=== PATIENT | female | born 1950 | race Caucasian/White ===

== ENCOUNTER 2016-05-31 14:19 | Inpatient (IN) | payer MEDICARE ==
[~2016-05-31] VITALS: Ht 154.9 cm; Wt 91.8 kg
[2016-06-03] MEDS ORDERED: LISI-515 PO (10:26)
[2016-06-03] MEDS ORDERED: PRAV40TA2 PO (10:26)
[2016-06-03] MEDS ORDERED: METO50TA PO (10:26)
[2016-06-03] MEDS ORDERED: ASPI325T PO (10:26)
[2016-06-03] MEDS ORDERED: IBUP200C PO (10:26)
[2016-06-19] MEDS: POVIDONE IODINE 7.5% SCRUB 118 ML BOTTLE TOP SCH ×2 (05:45→22:08)
[2016-06-19] MEDS ORDERED: DEXAMETHASONE SOD PHOS 4 MG/ML VIAL IV SCH (05:45)
[2016-06-19] MEDS ORDERED: VANCOMYCIN 1000 MG/NS 250 ML (for <70 kg) IV SCH ×2 (05:45)
[2016-06-19] MEDS ORDERED: METF1000 PO (05:51)
[2016-06-19 05:52] VITALS: BP 158/84; PULSE 75; RESP 16; TEMP 98.7; O2SAT 99
[2016-06-19] MEDS ORDERED: SODIUM CHLOR 0.9% 250 ML INJ 250 ML ONE (05:53)
[2016-06-19] MEDS ORDERED: DEXAMETHASONE SOD PHOS 20 MG/5 ML VIAL ONE (05:59)
[2016-06-19] MEDS ORDERED: SODIUM CHLORID 0.9% 500 ML IV SCH (06:00)
[2016-06-19] MEDS ORDERED: INSULIN HUMAN REGULAR 1,000 UNITS/10 ML VIAL SQ PRN (06:00)
[2016-06-19] MEDS ORDERED: LACTATED RINGER'S 1000 ML IV SCH (06:00)
[2016-06-19] MEDS ORDERED: METOPROLOL TARTRATE 25 MG TAB PO PRN (06:00)
[2016-06-19] MEDS ORDERED: GENTAMICIN SULFATE 80 MG/2 ML VIAL ONE (06:17)
[2016-06-19] MEDS ORDERED: MIDAZOLAM HCL 2 MG/2 ML VIAL ONE (06:44)
[2016-06-19] MEDS ORDERED: DEXAMETHASONE SOD PHOS 4 MG/ML VIAL ONE (06:44)
[2016-06-19] MEDS ORDERED: FAMOTIDINE 20 MG/2 ML VIAL ONE (06:44)
--- NOTE | 2016-06-19 06:51 | HHI.DCPOC ---
Discharge Care Plan Diagnosis: (1) Status post total hip replacement, right (2) Osteoarthritis of right hip Your Health Problems Are: Difficulty with ADL Goals to Promote Your Health * To prevent worsening of your condition and complications * To maintain your health at the optimal level Directions to Meet Your Goals Take your medications as prescribed Follow your dietary instruction Follow activity as directed Keep your appointments as scheduled Take your immunizations and boosters as scheduled If your symptoms worsen call your PCP, if no PCP go to Urgent Care Center or Emergency Room Smoking is Dangerous to Your Health. Avoid second hand smoke Call the 24-hour hour crisis hotline for domestic abuse at Steve Goff Jun 19, 2016 06:51
--- NOTE | 2016-06-19 06:52 | HHI.FF ---
Face to Face Verification Diagnosis: (1) Status post total hip replacement, right (2) Osteoarthritis of right hip Physical Therapy Gait training, Transfer training, bed to chair Hip: Total hip Right LE Weight Bearing: WB as tolerated Right LE Range of Motion: Active ROM Nursing Nursing: Swapnil teaching, Dressing changes Dressing Changes: Daily dressing change I have seen patient Thao Waldron on 06/19/16. My clinical findings support the need for the requested home health care services because: Limited ability to care for self High risk of falls I certify that my clinical findings support that this patient is homebound because: Post-op weakness Unsteady gait/balance Steve Goff Jun 19, 2016 06:52
[2016-06-19] MEDS ORDERED: WALKER WHEELS/F1 MIS (06:53)
[2016-06-19] MEDS ORDERED: COMMODE 3-IN-11 MIS (06:53)
[2016-06-19] MEDS: TRANEXAMIC ACID IV SCH ×2 (06:59→07:00)
[2016-06-19] MEDS: SODIUM CHLORIDE 0.9% IV SCH ×2 (06:59→07:00)
[2016-06-19] MEDS: EXPAREL PERI-ARTICULAR INJECTION (TOTAL VOL. 60 ML) P-ARTICULR SCH ×4 (07:00→07:37)
[2016-06-19] MEDS ORDERED: CLINDAMYCIN 900 MG/NS 100 ML IV SCH ×2 (07:30)
--- NOTE | 2016-06-19 08:44 | PD.OP ---
cc: Rod Wang MD Operative Report Date of Surgery: Jun 19, 2016 Preoperative Diagnosis: Right hip severe osteoarthritis. Postoperative Diagnosis: Same Procedure: Right total hip arthroplasty Anesthesia: Gen. Surgeon: Rod Wang Body Mechanic Apprentice(s): GAVI Claire The surgical procedure was assisted by my Advanced Registered Nurse Practitioner. My GRADES 9 THROUGH 12 TEACHER presence was necessary throughout this case for the manipulation and positioning of the surgical extremity. My GRADES 9 THROUGH 12 TEACHER was assisting me throughout the duration of this procedure. The skill set of an Advance Registered Nurse Practitioner was medically necessary to complete this procedure. During the surgical case, the pm technician was working at the back table and the Advance Registered Nurse Practitioner was directly assisting me. Operation and Findings: IMPLANT DESCRIPTION: 1. [place] Gription Cup, acetabular size 48. 2. [place] AltrX polyethylene, neutral. 4. [place] femoral stem size 9, no collar, standard offset. 5. Femoral head/neck metal, 32, +5. ESTIMATED BLOOD LOSS: 250 cc. JUSTIFICATION FOR PROCEDURE: The patient has end-stage osteoarthritis to the hip. There is an attached conservative measures pathway form in the chart that describes the nonoperative measures that were undertaken prior to consideration of surgical management. The patient understood the risks and benefits of surgical management. See my office notes for further details. PROCEDURE: The patient was brought back to the operative theatre. Adequate anesthesia was obtained. The patient received intravenous vancomycin and clindamycin. The patient was carefully placed on the operative table. The lower extremity was prepped and draped in the usual sterile fashion. Fluoroscopic images were obtained. We made a standard anterior incision over the hip. We dissected through the TFL fascia, exposing the anterior capsule. Arthrotomy was performed in a T-shaped fashion. The capsule was tagged with a #2 FiberWire. End-stage arthritis was identified. Osteotomy was performed through the femoral neck exposing the acetabulum. Remnants of the labrum were resected and osteophytes were removed. We sequentially reamed the acetabulum. We trialed the hip and placed the final cup into position. This was done under fluoroscopic guidance to obtain the appropriate inclination and anteversion. A manhole cover was placed into the acetabular component. We then placed the final polyethylene into position and confirmed that it was well seated. Capsular attachments on the calcar and the inner aspect of the greater trochanter were resected. On the proximal aspect of the femur we used a rongeur , box osteotome, canal finder, sequential broaches and lateralizing rasp. We calcar planed the proximal femur. Then thoroughly irrigated the wound. We trialed the hip with the appropriate size stem. We placed the final stem in to position and trialed again. The hip was stable while it was externally rotated 70 degrees when the leg was lowered to the floor. The final head was applied, and final fluoroscopic images were obtained. The wound was thoroughly irrigated again. Interarticular injection of liposomal bupivacaine was given. The capsule was closed with #2 FiberWire and #1 Vicryl. The deep fascia was closed with a #2 Stratafix, followed by 2-0 Vicryl in the skin and juan. Postop plan is to weight-bear as tolerated. DVT prophylaxis will be performed with Anju, COLUMBA darden, early mobilization, and Lovenox followed by aspirin. Rod Wang MD Jun 19, 2016 08:44
[2016-06-19] MEDS ORDERED: Post-op Orders (for Pharmacy) MISC XX ONE (08:45)
[2016-06-19] MEDS ORDERED: ACETAMINOPHEN/HYDROcodone 325 MG/5 MG TAB PO PRN (08:45)
[2016-06-19] MEDS ORDERED: NALOXONE HCL 0.4 MG/ML AMP IV PRN (08:45)
[2016-06-19] MEDS ORDERED: ONDANSETRON HCL 4 MG/2 ML VIAL IVP PRN (08:45)
[2016-06-19] MEDS ORDERED: ZOLPIDEM TARTRATE 5 MG TAB PO PRN (08:45)
[2016-06-19] MEDS ORDERED: MAGNESIUM HYDROXIDE SUSP 30 ML CUP PO PRN (08:45)
[2016-06-19] MEDS ORDERED: SODIUM CHLORIDE 0.9% FLUSH 5 ML FLUSH IVF PRN (08:45)
[2016-06-19] MEDS ORDERED: BISACODYL 10 MG SUPP PR PRN (08:45)
[2016-06-19] MEDS ORDERED: MORPHINE SULFATE 4 MG/ML INJ IV PUSH PRN (08:45)
[2016-06-19] MEDS ORDERED: ALUMINUM/MAGNESIUM/SIMETH 30 ML CUP PO PRN (08:45)
[2016-06-19] MEDS ORDERED: diphenhydrAMINE HCL 50 MG/ML VIAL IV PRN (08:45)
[2016-06-19] MEDS ORDERED: ASPI325T PO (08:46)
[2016-06-19] MEDS ORDERED: NORC5TAB PO (08:46)
[2016-06-19] MEDS ORDERED: ENOX40P SQ (08:46)
[2016-06-19] MEDS ORDERED: DO NOT ADM ANY ANTICOAGULANT DRUGS XX PRN (09:15)
[2016-06-19] MEDS ORDERED: fentaNYL CITRATE 250 MCG/5 ML AMP ONE (09:21)
[2016-06-19] MEDS ORDERED: *morphine SULFATE 8 MG/ML PERIprocedure ONLY ONE ×2 (09:25→09:43)
--- NOTE | 2016-06-19 09:36 | RADRPT ---
EXAM DATE/TIME: 06/19/2016 07:21 [facility] COMPARISON: No previous studies available for comparison. INDICATIONS : Post-op total right hip arthroplasty. MEDICAL HISTORY : None. SURGICAL HISTORY : None. ENCOUNTER: Initial ACUITY: 1 day PAIN SCORE: Non-responsive. LOCATION: Right hip. FINDINGS: Right total hip arthroplasty is noted. The hardware appears intact. Alignment is anatomic. Adjacent p kody is unremarkable. CONCLUSION: Satisfactory appearance post right CALLIE John Hollingsworth MD on June 19, 2016 at 9:34 Board Certified Radiologist. This report was verified electronically.
[2016-06-19] MEDS ORDERED: TRANEXAMIC ACID IV SCH (10:00)
[2016-06-19] MEDS: LISINOPRIL 20 MG TAB PO SCH ×2 (10:00→20:04)
[2016-06-19] MEDS: PRAVASTATIN SOD 40 MG TAB PO SCH (10:00)
[2016-06-19] MEDS: SODIUM CHLOR 0.9% 1000 ML INJ 1,000 ML IV SCH ×2 (10:00→20:00)
[2016-06-19] MEDS: metFORMIN HCL 500 MG TAB PO SCH ×2 (10:00→18:00)
[2016-06-19] MEDS: SODIUM CHLORIDE 0.9% FLUSH 5 ML FLUSH IVF SCH ×2 (10:00→20:03)
[2016-06-19] MEDS: METOPROLOL TARTRATE 50 MG TAB PO SCH ×2 (10:00→20:04)
[2016-06-19] MEDS ORDERED: SODIUM CHLORIDE 0.9% IV SCH (10:00)
--- NOTE | 2016-06-19 10:59 | RADRPT ---
EXAM DATE/TIME: 06/19/2016 09:30 [facility] COMPARISON: No previous studies available for comparison. INDICATIONS : Post op right total hip. MEDICAL HISTORY : None. SURGICAL HISTORY : None. ENCOUNTER: Subsequent ACUITY: 1 day PAIN SCORE: Non-responsive. LOCATION: Right hip. FINDINGS: The patient is status post right hip replacement with prosthesis in good position. CONCLUSION: Status post right hip replacement with prosthesis in good position. Khoi Faust MD on June 19, 2016 at 10:50 Board Certified Radiologist. This report was verified electronically.
[2016-06-19 12:00] VITALS: BP 107/67; PULSE 96; RESP 19; TEMP 96; O2SAT 98
[2016-06-19] MEDS ORDERED: MORPHINE SULFATE 4 MG/ML INJ IV ONE (12:00)
[2016-06-19] MEDS ORDERED: LACTATED RINGER'S 1000 ML INJ 1,000 ML IV ONE (12:00)
[2016-06-19] MEDS ORDERED: ePHEDrine/NS 25 MG/5 ML SYR IV ONE (12:00)
[2016-06-19] MEDS ORDERED: PROPOFOL 200 MG/20 ML AMP IV ONE (12:00)
[2016-06-19] MEDS ORDERED: ONDANSETRON HCL 4 MG/2 ML VIAL IV PUSH ONE (12:00)
[2016-06-19] MEDS: MAGNESIUM HYDROXIDE SUSP 30 ML CUP PO SCH ×2 (15:00→20:04)
[2016-06-19] MEDS: CLINDAMYCIN INJ 900 MG in SODIUM CHLORIDE 0.9% INJ 100 ML IV SCH ×2 (15:50→22:07)
[2016-06-19 16:00] VITALS: BP 85/61; PULSE 103; RESP 19; TEMP 96.1; O2SAT 98
[2016-06-19] MEDS: ACETAMINOPHEN/HYDROcodone 325 MG/5 MG TAB PO PRN (19:10)
--- NOTE | 2016-06-19 19:40 | PD.CONS ---
History of Present Illness Service primary care Consult Requested By mike Reason for Consult medical management Primary Care Physician Rolly Nguyen DO Diagnoses: History of Present Illness progressive arthritis pain and disability hip Review of Systems Musculoskeletal: COMPLAINS OF: Joint pain Past Family Social History Allergies: Coded Allergies: Rocephin (Verified Adverse Reaction, Severe, Nausea/Vomiting, 06/19/16) Past Medical History htn diabetesobesity djd Reported Medications Current Medications Medications (Trade) Dose Ordered Sig/Xochitl Route PRN Reason Start Time Stop Time Status Last Admin Dose Admin Povidone Iodine (Betadine 7.5% Scrub) 1 applic ONCE TOP 06/19/16 05:45 06/22/16 05:44 Lisinopril (Prinivil) 20 mg BID PO 06/19/16 10:00 Metformin HCl (Glucophage) 1,000 mg BIDPC PO 06/19/16 10:00 06/19/16 18:00 Metoprolol Tartrate (Lopressor) 50 mg BID PO 06/19/16 10:00 Pravastatin Sodium 40 mg 40 mg DAILY PO 06/19/16 10:00 Sodium Chloride (NS 1000 ml Inj) 1,000 ml @ 100 mls/hr Q10H IV 06/19/16 10:00 06/19/16 10:00 IV Flush (NS Flush) 2 ml UNSCH PRN IVF FLUSH AFTER USING IV ACCESS 06/19/16 08:45 IV Flush 2 ml 2 ml BID IVF 06/19/16 10:00 06/19/16 10:00 Clindamycin Phosphate/Sodium Chloride (Cleocin Inj/NS Inj) 106 ml @ 212 mls/hr Q8H IV 06/19/16 14:00 06/20/16 06:29 06/19/16 15:50 Dexamethasone Sodium Phosphate (Decadron Inj) 5 mg ONCE ONCE IV 06/20/16 07:45 06/20/16 07:46 Enoxaparin Sodium (Lovenox Inj) 40 mg Q24H SQ 06/20/16 08:15 06/29/16 08:16 Acetaminophen/ Hydrocodone Bitart ([place] 5-325 Mg) 1 tab Q4H PRN PO PAIN LESS THAN 5 ON SCALE 06/19/16 08:45 06/19/16 19:10 Acetaminophen/ Hydrocodone Bitart ([place] 5-325 Mg) 2 tab Q4H PRN PO PAIN SCALE 5 TO 10 06/19/16 08:45 Multivitamins/ Minerals Therapeutic (Theragran M Tab) 1 tab BID PO 06/20/16 21:00 08/19/16 20:59 Ondansetron HCl (Zofran Inj) 4 mg Q6H PRN IVP NAUSEA OR VOMITING 06/19/16 08:45 Docusate Sodium (Colace) 100 mg BID PO 06/20/16 21:00 Al Hydrox/Mg Hydrox/Simethicone (Mag-Al Plus Susp Liq) 30 ml Q6H PRN PO INDIGESTION 06/19/16 08:45 Zolpidem Tartrate (Ambien) 5 mg HS PRN PO SLEEP 06/19/16 08:45 Bisacodyl (Dulcolax Supp) 10 mg DAILY PRN DC CONSTIPATION 06/19/16 08:45 Naloxone HCl (Narcan Inj) 0.4 mg UNSCH PRN IV RESPIRATORY RATE LESS THAN 10 06/19/16 08:45 Diphenhydramine HCl (Benadryl Inj) 25 mg Q6H PRN IV ITCHING 06/19/16 08:45 Morphine Sulfate (Morphine Inj) 2 mg Q3H PRN IV PUSH pain greater than 5 06/19/16 08:45 Miscellaneous Information ALL NURSING DEPARTME... UNSCH PRN XX SEE LABEL COMMENTS 06/19/16 09:15 06/20/16 09:14 Magnesium Hydroxide (Milk Of Magnesia Liq) 30 ml BID PO 06/19/16 15:00 Sennosides (Senokot) 17.2 mg HS PO 06/19/16 21:00 Active Ordered Medications Current Medications Medications (Trade) Dose Ordered Sig/Xochitl Route PRN Reason Start Time Stop Time Status Last Admin Dose Admin Povidone Iodine (Betadine 7.5% Scrub) 1 applic ONCE TOP 06/19/16 05:45 06/22/16 05:44 Lisinopril (Prinivil) 20 mg BID PO 06/19/16 10:00 Metformin HCl (Glucophage) 1,000 mg BIDPC PO 06/19/16 10:00 06/19/16 18:00 Metoprolol Tartrate (Lopressor) 50 mg BID PO 06/19/16 10:00 Pravastatin Sodium 40 mg 40 mg DAILY PO 06/19/16 10:00 Sodium Chloride (NS 1000 ml Inj) 1,000 ml @ 100 mls/hr Q10H IV 06/19/16 10:00 06/19/16 10:00 IV Flush (NS Flush) 2 ml UNSCH PRN IVF FLUSH AFTER USING IV ACCESS 06/19/16 08:45 IV Flush 2 ml 2 ml BID IVF 06/19/16 10:00 06/19/16 10:00 Clindamycin Phosphate/Sodium Chloride (Cleocin Inj/NS Inj) 106 ml @ 212 mls/hr Q8H IV 06/19/16 14:00 06/20/16 06:29 06/19/16 15:50 Dexamethasone Sodium Phosphate (Decadron Inj) 5 mg ONCE ONCE IV 06/20/16 07:45 06/20/16 07:46 Enoxaparin Sodium (Lovenox Inj) 40 mg Q24H SQ 06/20/16 08:15 06/29/16 08:16 Acetaminophen/ Hydrocodone Bitart ([place] 5-325 Mg) 1 tab Q4H PRN PO PAIN LESS THAN 5 ON SCALE 06/19/16 08:45 06/19/16 19:10 Acetaminophen/ Hydrocodone Bitart ([place] 5-325 Mg) 2 tab Q4H PRN PO PAIN SCALE 5 TO 10 06/19/16 08:45 Multivitamins/ Minerals Therapeutic (Theragran M Tab) 1 tab BID PO 06/20/16 21:00 08/19/16 20:59 Ondansetron HCl (Zofran Inj) 4 mg Q6H PRN IVP NAUSEA OR VOMITING 06/19/16 08:45 Docusate Sodium (Colace) 100 mg BID PO 06/20/16 21:00 Al Hydrox/Mg Hydrox/Simethicone (Mag-Al Plus Susp Liq) 30 ml Q6H PRN PO INDIGESTION 06/19/16 08:45 Zolpidem Tartrate (Ambien) 5 mg HS PRN PO SLEEP 06/19/16 08:45 Bisacodyl (Dulcolax Supp) 10 mg DAILY PRN DC CONSTIPATION 06/19/16 08:45 Naloxone HCl (Narcan Inj) 0.4 mg UNSCH PRN IV RESPIRATORY RATE LESS THAN 10 06/19/16 08:45 Diphenhydramine HCl (Benadryl Inj) 25 mg Q6H PRN IV ITCHING 06/19/16 08:45 Morphine Sulfate (Morphine Inj) 2 mg Q3H PRN IV PUSH pain greater than 5 06/19/16 08:45 Miscellaneous Information ALL NURSING DEPARTME... UNSCH PRN XX SEE LABEL COMMENTS 06/19/16 09:15 06/20/16 09:14 Magnesium Hydroxide (Milk Of Nathanael Lorenz) 30 ml BID PO 06/19/16 15:00 Sennosides (Senokot) 17.2 mg HS PO 06/19/16 21:00 Family History father with CHF mother with Bone cancer Social History smoker non drinker Physical Exam Vital Signs Vital Signs Date Time Temp Pulse Resp B/P Pulse Ox O2 Delivery O2 Flow Rate FiO2 06/19/16 16:00 96.1 103 19 85/61 98 06/19/16 12:00 96.0 96 19 107/67 98 06/19/16 10:15 96 16 108/75 100 Nasal Cannula 2 06/19/16 10:00 96 16 100/60 97 Nasal Cannula 2 06/19/16 09:45 94 16 112/51 98 Nasal Cannula 2 06/19/16 09:30 98 16 94/56 97 Nasal Cannula 2 06/19/16 09:15 98.3 102 16 100/62 95 Nasal Cannula 2 06/19/16 05:52 98.7 75 16 158/84 99 Physical Exam GENERAL: This is a well-nourished, well-developed patient, in no apparent distress. SKIN: No rashes, ecchymoses or lesions. Cool and dry. HEAD: Atraumatic. Normocephalic. No temporal or scalp tenderness. EYES: Pupils equal round and reactive. Extraocular motions intact. No scleral icterus. No injection or drainage. ENT: Nose without bleeding, purulent drainage or septal hematoma. Throat without erythema, tonsillar hypertrophy or exudate. Uvula midline. Airway patent. NECK: Trachea midline. No JVD or lymphadenopathy. Supple, nontender, no meningeal signs. CARDIOVASCULAR: Regular rate and rhythm without murmurs, gallops, or rubs. RESPIRATORY: Clear to auscultation. Breath sounds equal bilaterally. No wheezes , rales, or rhonchi. GASTROINTESTINAL: Abdomen soft, non-tender, nondistended. No hepato-splenomegaly , or palpable masses. No guarding.obese MUSCULOSKELETAL: Extremities without clubbing, cyanosis, or edema. healing incision r hip NEUROLOGICAL: Awake and alert. Cranial nerves II through XII intact. Motor and sensory grossly within normal limits. Five out of 5 muscle strength in all muscle groups. Normal speech. Laboratory Laboratory Tests Test 06/19/16 05:45 Blood Type O POSITIVE Antibody Screen NEGATIVE Blood Bank Comment Imaging Last 48 hours Impressions Hip and Pelvis X-Ray 06/19/16 0840 Signed Impressions: Service Date/Time: Sunday, June 19, 2016 09:30 - CONCLUSION: Status post right hip replacement with prosthesis in good position. Khoi Faust MD Hip X-Ray 06/19/16 0000 Signed Impressions: Service Date/Time: Sunday, June 19, 2016 07:21 - CONCLUSION: Satisfactory appearance post right CALLIE John Hollingsworth MD Assessment and Plan Problem List: (1) Status post total hip replacement, right Status: Acute (2) Hypertension Status: Acute Discharge Planning home with home health care Rolly Nguyen DO Jun 19, 2016 19:40
[2016-06-19 20:06] VITALS: BP 125/67; PULSE 99; RESP 19; TEMP 96.4; O2SAT 99
[2016-06-19] MEDS ORDERED: SENNOSIDES 8.6 MG TAB PO SCH (21:00)
[2016-06-20 00:08] VITALS: BP 94/54; PULSE 82; RESP 19; TEMP 98.5; O2SAT 99
[2016-06-20 02:14] VITALS: BP 122/63
[2016-06-20] MEDS: ACETAMINOPHEN/HYDROcodone 325 MG/5 MG TAB PO PRN ×2 (02:43→13:30)
[2016-06-20 04:11] VITALS: BP 104/58; PULSE 94; RESP 20; TEMP 96.8; O2SAT 100
[2016-06-20] MEDS: SODIUM CHLOR 0.9% 1000 ML INJ 1,000 ML IV SCH (06:00)
[2016-06-20] MEDS: CLINDAMYCIN INJ 900 MG in SODIUM CHLORIDE 0.9% INJ 100 ML IV SCH (06:05)
[2016-06-20 06:06] LABS: HEMATOCRIT 25.9 % (35.0-46.0); MEAN CELL VOLUME 91.3 FL (80.0-100.0); MEAN CORPUSCULAR HEMOGLOBIN 31.1 PG (27.0-34.0); MEAN CORPUSCULAR HGB CONC 34.1 % (32.0-36.0); PLATELET COUNT 191 TH/MM3 (150-450); RED BLOOD COUNT 2.83 MIL/MM3 (4.00-5.30); RED CELL DISTRIBUTION WIDTH 14.6 % (11.6-17.2); REVIEW FLAG FINAL; WHITE BLOOD COUNT 10.9 TH/MM3 (4.0-11.0)
[2016-06-20] MEDS ORDERED: GLUCAGON 1 MG/ML VIAL OTHER PRN (07:45)
[2016-06-20] MEDS ORDERED: DEXAMETHASONE SOD PHOS 20 MG/5 ML VIAL IV ONE (07:45)
[2016-06-20] MEDS ORDERED: DEXTROSE 50% IN WATER 50 ML VIAL(D50) IV PUSH PRN (07:45)
--- NOTE | 2016-06-20 07:55 | HHI.PR ---
Subjective Remarks Patient seen at bedside. Alert and oriented. Pain is controlled with current regimen. PT started yesterday. Objective Vital Signs Date Time Temp Pulse Resp B/P Pulse Ox O2 Delivery O2 Flow Rate FiO2 06/20/16 04:11 96.8 94 20 104/58 100 06/20/16 03:45 18 06/20/16 02:14 122/63 06/20/16 00:08 98.5 82 19 94/54 99 06/19/16 20:06 96.4 99 19 125/67 99 06/19/16 16:20 Nasal Cannula 2.00 06/19/16 16:00 96.1 103 19 85/61 98 06/19/16 12:00 96.0 96 19 107/67 98 06/19/16 10:15 96 16 108/75 100 Nasal Cannula 2 06/19/16 10:00 96 16 100/60 97 Nasal Cannula 2 06/19/16 09:45 94 16 112/51 98 Nasal Cannula 2 06/19/16 09:30 98 16 94/56 97 Nasal Cannula 2 06/19/16 09:15 98.3 102 16 100/62 95 Nasal Cannula 2 I/O 06/19/16 06/19/16 06/19/16 06/20/16 06/20/16 06/20/16 07:00 15:00 23:00 07:00 15:00 23:00 Intake Total 250 ml 1656 ml 480 ml Output Total 450 ml 750 ml 900 ml Balance -200 ml 906 ml -420 ml Intake Oral 200 ml 480 ml 480 ml IV Total 50 ml 1176 ml Output Urine Total 450 ml 750 ml 900 ml # Bowel Movements 0 0 0 Result Diagram: 06/20/16 0534 Imaging Last 48 hours Impressions Hip and Pelvis X-Ray 06/19/16 0840 Signed Impressions: Service Date/Time: Sunday, June 19, 2016 09:30 - CONCLUSION: Status post right hip replacement with prosthesis in good position. Khoi Faust MD Hip X-Ray 06/19/16 0000 Signed Impressions: Service Date/Time: Sunday, June 19, 2016 07:21 - CONCLUSION: Satisfactory appearance post right CALLIE John Hollingsworth MD Objective Remarks GENERAL: Alert and oriented. SKIN: Warm and dry. HEAD: Normocephalic. EYES: No scleral icterus. No injection or drainage. NECK: Supple, trachea midline. No JVD or lymphadenopathy. CARDIOVASCULAR: Regular rate and rhythm without murmurs, gallops, or rubs. RESPIRATORY: Breath sounds equal bilaterally. No accessory muscle use. GASTROINTESTINAL: Abdomen soft, non-tender, nondistended. MUSCULOSKELETAL: No cyanosis. Dressing on right hip minimal edema BACK: Nontender without obvious deformity. No CVA tenderness. Medications and IVs Current Medications Medications (Trade) Dose Ordered Sig/Xochitl Route Start Time Stop Time Status Last Admin (Betadine 7.5% Scrub) 1 applic ONCE TOP 06/19/16 05:45 06/22/16 05:44 (Prinivil) 20 mg BID PO 06/19/16 10:00 06/19/16 20:04 (Glucophage) 1,000 mg BIDPC PO 06/19/16 10:00 06/19/16 18:00 (Lopressor) 50 mg BID PO 06/19/16 10:00 06/19/16 20:04 Pravastatin Sodium 40 mg 40 mg DAILY PO 06/19/16 10:00 (NS 1000 ml Inj) 1,000 ml @ 100 mls/hr Q10H IV 06/19/16 10:00 06/19/16 20:00 (NS Flush) 2 ml UNSCH PRN IVF 06/19/16 08:45 (NS Flush) 2 ml BID IVF 06/19/16 10:00 06/19/16 10:00 (Lovenox Inj) 40 mg Q24H SQ 06/20/16 08:15 06/29/16 08:16 ([place] 5-325 Mg) 1 tab Q4H PRN PO 06/19/16 08:45 06/20/16 02:43 ([place] 5-325 Mg) 2 tab Q4H PRN PO 06/19/16 08:45 (Theragran M Tab) 1 tab BID PO 06/20/16 21:00 08/19/16 20:59 (Zofran Inj) 4 mg Q6H PRN IVP 06/19/16 08:45 (Colace) 100 mg BID PO 06/20/16 21:00 (Mag-Al Plus Susp Liq) 30 ml Q6H PRN PO 06/19/16 08:45 (Ambien) 5 mg HS PRN PO 06/19/16 08:45 (Dulcolax Supp) 10 mg DAILY PRN [place] 06/19/16 08:45 (Narcan Inj) 0.4 mg UNSCH PRN IV 06/19/16 08:45 (Benadryl Inj) 25 mg Q6H PRN IV 06/19/16 08:45 (Morphine Inj) 2 mg Q3H PRN IV PUSH 06/19/16 08:45 Miscellaneous Information ALL NURSING DEPARTME... UNSCH PRN XX 06/19/16 09:15 06/20/16 09:14 (Milk Of Nathanael Liq) 30 ml BID PO 06/19/16 15:00 06/19/16 20:04 (Senokot) 17.2 mg HS PO 06/19/16 21:00 06/19/16 20:04 Assessment and Plan Problem List: (1) Status post total hip replacement, right Status: Acute Plan: Patient with dressing on right hip. PT started. On Lovenox for DVT prophylaxis (2) Hypertension Status: Acute Plan: B/P slightly low over night. Continues to get IV fluid. Oral fluids encouraged. Metoprolol decreased. (3) Hyperlipidemia Status: Chronic Plan: Continue pravastatin. Lipid panel in AM (4) Diabetes Status: Chronic Plan: BS AC and HS ordered with sliding scale. Continue metformin (5) Anemia Status: Acute Plan: HGB 8.8. Iron replacement added. Will monitor Assessment and Plan Assessment and plan discussed with Laya Dasilva Jun 20, 2016 07:55
[2016-06-20 08:00] VITALS: BP 162/69; PULSE 94; RESP 20; TEMP 96.4; O2SAT 94
[2016-06-20] MEDS ORDERED: ENOXAPARIN SODIUM 40 MG/0.4 ML SYRINGE SQ SCH (08:15)
[2016-06-20 08:49] VITALS: O2SAT 97
[2016-06-20] MEDS ORDERED: METOPROLOL TARTRATE 25 MG TAB PO SCH (09:00)
[2016-06-20] MEDS: SODIUM CHLORIDE 0.9% FLUSH 5 ML FLUSH IVF SCH (09:00)
[2016-06-20] MEDS: MAGNESIUM HYDROXIDE SUSP 30 ML CUP PO SCH (09:00)
[2016-06-20] MEDS ORDERED: POLYSACCHARIDE IRON COMPLEX 150 MG CAP PO SCH (09:00)
[2016-06-20] MEDS: PRAVASTATIN SOD 40 MG TAB PO SCH (09:34)
[2016-06-20] MEDS: LISINOPRIL 20 MG TAB PO SCH (09:34)
[2016-06-20] MEDS: metFORMIN HCL 500 MG TAB PO SCH (09:34)
[2016-06-20 11:59] LABS: ALKALINE PHOSPHATASE 84 U/L (45-117); ALT (GPT) 34 U/L (10-53); ANION GAP 9 MEQ/L (5-15); AST (GOT) 43 U/L (15-37); BICARBONATE 24.3 MEQ/L (21.0-32.0); BLOOD UREA NITROGEN 15 MG/DL (7-18); CHLORIDE 98 MEQ/L (98-107); GLOMERULAR FILTRATION RATE 63 ML/MIN (>89); POTASSIUM 4.9 MEQ/L (3.5-5.1); SODIUM (NA) 131 MEQ/L (136-145); TOTAL BILIRUBIN ADULT 0.3 MG/DL (0.2-1.0)
[2016-06-20 12:00] VITALS: BP 155/62; PULSE 96; RESP 20; TEMP 97; O2SAT 100
--- NOTE | 2016-06-20 12:19 | PD.ORT.PN ---
Subjective Post Op Day #: 1 Subjective Remarks The patient is resting in bed with family at bedside. Pain is minimal. Patient is requesting to go home today. Objective Vitals Vital Signs Date Time Temp Pulse Resp B/P Pulse Ox O2 Delivery O2 Flow Rate FiO2 06/20/16 08:49 97 Nasal Cannula 21 06/20/16 08:00 96.4 94 20 162/69 94 06/20/16 04:11 96.8 94 20 104/58 100 06/20/16 03:45 18 06/20/16 02:14 122/63 06/20/16 00:08 98.5 82 19 94/54 99 06/19/16 20:06 96.4 99 19 125/67 99 06/19/16 16:20 Nasal Cannula 2.00 06/19/16 16:00 96.1 103 19 85/61 98 I/O 06/19/16 06/19/16 06/19/16 06/20/16 06/20/16 06/20/16 07:00 15:00 23:00 07:00 15:00 23:00 Intake Total 250 ml 1656 ml 480 ml Output Total 450 ml 750 ml 900 ml Balance -200 ml 906 ml -420 ml Intake Oral 200 ml 480 ml 480 ml IV Total 50 ml 1176 ml Output Urine Total 450 ml 750 ml 900 ml # Bowel Movements 0 0 0 Result Diagram: 06/20/16 0534 06/20/16 1058 Procedures Right CALLIE Objective Remarks The patient's dressing was changed with scant serosanguineous drainage. Incision is well approximated with surgical clips intact. No redness or s/s of infection. EHL/TA/G intact. Calf is soft and nontender. + SILT. 2+ pedal pulse. Minimal swelling. Assessment & Plan Ortho Post Op Day #: 1 Problem List: Assessment and Plan POD #1: Right CALLIE 1. WBAT to the right LE 2. Lovenox for DVT prophylaxis 3. Ice to the right hip PRN 4. Stable for discharge home with home health today. Steve Goff Jun 20, 2016 12:19
[2016-06-20] MEDS ORDERED: MULTIVITAMINS/MINERALS THERAPEUTIC TAB PO SCH (21:00)
[2016-06-20] MEDS ORDERED: DOCUSATE SODIUM 100 MG CAP PO SCH (21:00)
--- NOTE | 2016-06-23 20:32 | HHI.DS ---
Discharge Summary Admission Date Jun 19, 2016 at 05:13 Discharge Date: Jun 20, 2016 Admitting Diagnosis Right hip OA Status post right total hip replacement Diagnosis: (1) Osteoarthritis of right hip Diagnosis: Principal (2) Status post total hip replacement, right Diagnosis: Principal Procedures Right CALLIE Brief History This is a 66 year old female patient with severe OA of the right hip CBC/BMP: 06/20/16 0534 06/20/16 1058 PE at Discharge The patient's dressing was changed with scant serosanguineous drainage. Incision is well approximated with surgical clips intact. No redness or s/s of infection. EHL/TA/G intact. Calf is soft and nontender. + SILT. 2+ pedal pulse. Minimal swelling. Hospital Course The patient was admitted for severe OA of the right hip to have a right CALLIE. The patient's surgery went well without complication. The patient was placed on Lovenox for DVT prophylaxis. The patient was on a regular diet. The patient is WBAT. The patient was discharged home with home health and will f/u with Dr. Wang in 1-2 weeks as scheduled. Pt Condition on Discharge: Stable Discharge Disposition: Disch w/ Home Health Serv Discharge Instructions Diet Instructions: Diabetic Diet Activities You Can Perform: Weight Bearing as Jaciel Activities to Avoid: Strenuous Activity Follow up Referrals: Orthopedics with Rod Wang MD New Medications: Aspirin (Aspirin) 325 Mg Tab 325 MG PO DAILY Start Aspirin after Lovenox is completed. Prevent Blood Clot # 30 Ref 0 TAB Commode 3-in-1 (Commode 3-in-1) 1 Mis Mis 1 EA .ROUTE DIRECTED #1 Ref 0 EA Enoxaparin Inj (Lovenox Inj) 40 Mg/0.4 Ml Syr 40 MG SQ DAILY Start Aspirin after Lovenox is completed. Blood Clot Prevention # 10 Ref 0 SYRINGE Hydrocodone-Acetaminophen ([place]) 5-325 mg Tab 1-2 TAB PO Q4H PRN PAIN #60 Ref 0 TAB Walker with Front Wheels (Walker with Front Wheels) 1 Mis Mis 1 EA .ROUTE DIRECTED #1 Ref 0 EA Continued Medications: Lisinopril (Lisinopril) 20 Mg Tab 20 MG PO BID #30 Ref 0 TAB Metformin (Metformin) 1,000 Mg Tab 1000 MG PO BIDPC With meals Blood Sugar Management #60 Ref 0 TAB Metoprolol Tartrate (Metoprolol Tartrate) 50 Mg Tab 50 MG PO BID #60 Ref 0 TAB Pravastatin (Pravastatin) 40 Mg Tab 40 MG PO DAILY Cholesterol Management #30 Ref 0 TAB Discontinued Medications: Aspirin (Aspirin) 325 Mg Tab 325 MG PO DAILY #30 Ref 0 TAB Ibuprofen (Ibuprofen) 200 Mg Cap 200 MG PO Q6H PRN PAIN SCALE 1 TO 10 Ref 0 CAP Steve Goff Jun 23, 2016 20:32
== END 2016-06-20 15:57 | disposition home health service (06) | DRG 470 ==
LOC: HSDI 06-19 05:13 → N06A 06-19 10:54
PROVIDERS: ADMIT Orthopaedic Surgery; ATTEND Orthopaedic Surgery
PROC: 0SR902A Replacement of Right Hip Joint with Metal on Polyethylene Synthetic Substitute, Uncemented, Open Approach (ICD-10-PCS; principal; 2016-06-19 06:49)
DX: M16.11 Unilateral primary osteoarthritis, right hip (principal); I10 Essential (primary) hypertension; F17.210 Nicotine dependence, cigarettes, uncomplicated; E11.9 Type 2 diabetes mellitus without complications; Z79.84 Long term (current) use of oral hypoglycemic drugs; E78.5 Hyperlipidemia, unspecified
CPT/HCPCS: 73502; 76000; 80053; 85027; 86850; 86900; 86901; 94150; C1776; C9290; J1100; J1580; J1650; J2250; J2270; J2405; J3010; J3370; J7030; J7050; J7120

== ENCOUNTER → 2016-06-03 | Outpatient (CLI) | payer MEDICARE ==
[~2016-06-03] MED LIST: ASPI325T PO; COMMODE 3-IN-11 MIS; ENOX40P SQ; IBUP200C PO; LISI-363 PO; LISI-515 PO; METF1000 PO; METO50TA PO; MOTR200T PO; NORC5TAB PO; PRAV20 PO; PRAV40TA2 PO; WALKER WHEELS/F1 MIS
[2016-06-03 10:11] LABS: AUTOMATED NEUTROPHIL # 5.8 TH/MM3 (1.8-7.7); BASOPHIL # 0.1 TH/MM3 (0-0.2); BASOPHIL % 0.8 % (0.0-2.0); EOSINOPHIL # 0.2 TH/MM3 (0-0.4); EOSINOPHIL % 2.7 % (0.0-4.0); HEMATOCRIT 34.9 % (35.0-46.0); HEMO FLAGS DIFF FINAL; LYMPH % 19.2 % (9.0-44.0); LYMPHOCYTE # 1.6 TH/MM3 (1.0-4.8); MEAN CELL VOLUME 91.3 FL (80.0-100.0); MEAN CORPUSCULAR HEMOGLOBIN 30.5 PG (27.0-34.0); MEAN CORPUSCULAR HGB CONC 33.4 % (32.0-36.0); MONO % 7.3 % (0.0-8.0); PLATELET COUNT 199 TH/MM3 (150-450); RED BLOOD COUNT 3.83 MIL/MM3 (4.00-5.30); RED CELL DISTRIBUTION WIDTH 14.9 % (11.6-17.2); WHITE BLOOD COUNT 8.3 TH/MM3 (4.0-11.0)
[2016-06-03 10:18] LABS: APTT (PATIENT) 27.6 SEC (24.3-30.1); INTERNATIONAL NORMALIZED RATIO 0.9 RATIO; PROTHROMBIN TIME - PATIENT 10.2 SEC (9.8-11.6)
[2016-06-03 10:33] LABS: ANION GAP 12 MEQ/L (5-15); AST (GOT) 22 U/L (15-37); BICARBONATE 26.2 MEQ/L (21.0-32.0); BLOOD UREA NITROGEN 13 MG/DL (7-18); CHLORIDE 92 MEQ/L (98-107); GLOMERULAR FILTRATION RATE 55 ML/MIN (>89); GLUCOSE,FASTING 386 MG/DL (74-99); POTASSIUM 4.4 MEQ/L (3.5-5.1); SODIUM (NA) 130 MEQ/L (136-145)
[2016-06-03 10:35] LABS: WESTERGREN SEDIMENTATION RATE 33 mm/hr (0-30)
[2016-06-03 10:36] LABS: ALKALINE PHOSPHATASE 143 U/L (45-117); ALT (GPT) 23 U/L (10-53); TOTAL BILIRUBIN ADULT 0.3 MG/DL (0.2-1.0)
[2016-06-03 10:56] LABS: BACTERIA, URINE RARE /hpf; BLOOD, URINE NEG (NEG); COMMENT (UR) CULT NOT INDICATED; CULTURE IF INDICATED CULT NOT INDICATED; GLUCOSE,URINE 1000 mg/dL (NEG); KETONE, URINE NEG (NEG); MUCUS URINE FEW /lpf (OCC); NITRITE,URINE NEG (NEG); SQUAMOUS EPITHELIAL CELL URINE 3 /hpf (0-5); URINE COLOR LIGHT-YELLOW (YELLW/STRAW)
--- NOTE | 2016-06-03 13:06 | RADRPT ---
EXAM DATE/TIME: 06/03/2016 11:50 [facility] COMPARISON: CHEST PA & LAT, July 20, 2015, 0:50. INDICATIONS : Evaluate for pneumonia, pneumothorax and communicable diseases. Pre-op hip replacement MEDICAL HISTORY : Aneurysm, abdominal. SURGICAL HISTORY : Appendectomy. ENCOUNTER: Initial ACUITY: 1 day PAIN SCORE: 0/10 LOCATION: chest FINDINGS: Chronic interstitial prominence is noted. There is mild postinflammatory scarring left base. Compared to the prior study there is no evidence of acute air space disease or significant congestion . Heart and mediastinal structures are stable. CONCLUSION: Chronic lung disease. No evidence of acute process. Dimas Conway MD on June 03, 2016 at 13:03 Board Certified Radiologist. This report was verified electronically.
--- NOTE | 2016-06-04 16:04 | EKG ---
Date Performed: 06/03/2016 Time Performed: 09:41:02 PTAGE: 66 years EKG: Sinus rhythm WITH FIRST DEGREE AV BLOCK ABNORMAL ECG PREVIOUS TRACING : 07/20/2015 01.17 No significant change from previous tracing noted. DOCTOR: Andre Green Interpretating Date/Time 06/04/2016 16:02:27
== END ==
LOC: CPRE 09:02
PROVIDERS: ATTEND Orthopaedic Surgery
DX: Z01.810 Encounter for preprocedural cardiovascular examination (principal); M25.50 Pain in unspecified joint; M16.11 Unilateral primary osteoarthritis, right hip; M79.609 Pain in unspecified limb; R94.31 Abnormal electrocardiogram [ECG] [EKG]; Z01.818 Encounter for other preprocedural examination; Z01.812 Encounter for preprocedural laboratory examination; Z96.60 Presence of unspecified orthopedic joint implant
CPT/HCPCS: 36415; 71020; 80053; 81001; 85025; 85610; 85652; 85730; 93005